=== PATIENT | male | born 1990 ===

== ENCOUNTER 2018-12-20 05:45 | Inpatient (IN) | payer OTHER ==
[~2018-12-20] VITALS: Ht 175.3 cm; Wt 83.9 kg
[2018-12-20] VITALS (9 sets, daily range): BP systolic 120–140; BP diastolic 50–86
[~2018-12-20 05:45] MED LIST: NKM
[2018-12-20] MEDS ORDERED: Bupivacaine 0.5% Inj 30 ml vial INJ ONE (07:03)
[2018-12-20] MEDS ORDERED: Heparin 5000 units/ml inj ONE (07:03)
[2018-12-20] MEDS ORDERED: Thrombin 5000 units TOPIC ONE ×2 (07:03→07:05)
[2018-12-20] MEDS ORDERED: Thrombin 5000 units spray kit TOPIC ONE (07:03)
[2018-12-20] MEDS ORDERED: Gelfoam Size TOPIC ONE (07:03)
[2018-12-20] MEDS ORDERED: Bacitracin 50000 Units Vial ONE (07:04)
[2018-12-20] MEDS ORDERED: Midazolam 2mg/2ml Inj ONE (07:06)
[2018-12-20] MEDS ORDERED: fentaNYL 100 mcg/2 mL IV ONE (07:06)
[2018-12-20] MEDS ORDERED: Gelfoam Absorbable 1gm powder pkt TOPIC ONE (07:06)
--- NOTE | 2018-12-20 07:11 | Pre-Procedure Note/Attestation ---
Pre-Procedure Note/Attestation Complete Prior to Procedure Planned Procedure: bilateral Indications for Procedure Pre-Operative Diagnosis: herniated disk L5/S1 chronic back and bilateral leg pain Attestation I attest that I discussed the nature of the procedure; its benefits; risks and complications; and alternatives (and the risks and benefits of such alternatives ), prior to the procedure, with the patient (or the patient's legal insurance representative). I attest that, if there was a reasonable possibility of needing a blood transfusion, the patient (or the patient's legal insurance representative) was given the [facility] standardized written summary, pursuant to the Gabriel Salomón Blood Safety Act ([place] Health and Safety Code # 1645, as amended). I attest that I re-evaluated the patient just prior to the surgery and that there has been no change in the patient's H&P, except as documented below: Antwan Palma MD Dec 20, 2018 07:10
[2018-12-20] MEDS ORDERED: Rocuronium Bromide 50mg/5ml Inj IV ONE (07:19)
[2018-12-20] MEDS ORDERED: Succinylcholine 20mg/ml 10ml vial ONE (07:19)
[2018-12-20] MEDS ORDERED: NS Irrig 1000ml IRRIG ONE ×2 (07:20→07:56)
[2018-12-20] MEDS ORDERED: TransDerm Scop 1.5mg/72HR Patch TDERMAL ONE (07:29)
[2018-12-20] MEDS ORDERED: Sterile Water Irrig 1000ml IRRIG ONE (08:00)
[2018-12-20] MEDS ORDERED: LR 1000ml ONE (08:00)
[2018-12-20] MEDS ORDERED: Propofol 1,000mg/ 100ml btl IV ONE (08:00)
[2018-12-20] MEDS ORDERED: TransDerm Scop 1.5mg/72HR Patch TDERMAL SCH (08:30)
[2018-12-20] MEDS ORDERED: Acetaminophen (Non formulary) 100 ML IV ONE (08:30)
--- NOTE | 2018-12-20 08:31 | Anethesia Preoperative Eval ---
Anesthesia Pre-op PMH/ROS General Date of Evaluation: Dec 20, 2018 Time of Evaluation: 07:10 Anesthesiologist: Cassandra ASA Score: ASA 2 Mallampati Score Class I : Soft palate, uvula, fauces, pillars visible Class II: Soft palate, uvula, fauces visible Class III: Soft palate, base of uvula visible Class IV: Only hard plate visible Mallampati Classification: Class II Surgeon: Louie Diagnosis: Lumbar radiculopathy Surgical Procedure: Anterior discectomy fusion L5-S! Anesthesia History: none Social History: current smoker Family History: no anesthesia problems Allergies: Coded Allergies: No Known Allergies (Unverified , 12/17/18) Medications: see eMAR Patient NPO?: Yes NPO Date: Dec 20, 2018 NPO Time: 2100 Past Medical History Cardiovascular: Denies: HTN, CAD, [place], valve dz, arrhythmia, other Pulmonary: Denies: asthma, COPD, CATALINA, other Gastrointestinal/Genitourinary: Reports: GERD - mild; Denies: CRI, ESRD, other Neurologic/Psychiatric: Reports: other - chronic pain; Denies: dementia, CVA, depression/anxiety, TIA Endocrine: Denies: DM, hypothyroidism, steroids, other HEENT: Denies: cataract (L), cataract (R), glaucoma, CAHTO (L), CAHTO (R), other Hematology/Immune: Denies: anemia, DVT, bleeding disorder, other Musculoskeletal/Integumentary: Denies: OA, RA, DJD, DDD, edema, other PMH Narrative: as above PSxH Narrative: Appendectomy Anesthesia Pre-op Phys. Exam Physician Exam Last Vital Signs Date Time Temp Pulse Resp B/P (MAP) Pulse Ox O2 Delivery O2 Flow Rate FiO2 12/20/18 06:44 Room Air 12/20/18 06:29 97.1 61 18 120/69 (86) 98 Constitutional: NAD Neurologic: CN 2-12 intact Cardiovascular: RRR, no M/R/G Respiratory: CTA Gastrointestinal: S/NT/ND Airway Exam Mallampati Score: Class II MO: full Neck: flexible ROM: full Teeth: intact Dentures: no upper, no lower Anesthesia Pre-op A/P Labs see chart Studies Pre-op Studies: EKG - NSR Risk Assessment & Plan Assessment: ASA 2 Plan: GA with ETT neuromonitoring PONV prevention Status Change Before Surgery: No Pre-Antibiotics Drug: Ancef 2gr. Given Within 1 Hr of Incision: Yes Time Given: 08:16 Rafi Trujillo MD Dec 20, 2018 08:31
[2018-12-20] MEDS ORDERED: Sodium Chloride 10ml vial INJ ONE (08:33)
[2018-12-20] MEDS ORDERED: Glycopyrrolate 0.2mg/ml 1ml Vial ONE (08:33)
[2018-12-20] MEDS ORDERED: Neostigmine 1mg/ml 10ml Inj ONE (08:33)
[2018-12-20] MEDS ORDERED: Morphine Sulfate 10mg/ml Inj ONE (08:33)
[2018-12-20] MEDS ORDERED: Vancomycin 1gm vial IVPB ONE (08:35)
[2018-12-20] MEDS ORDERED: LR 1000ml 1,000 ML IVLG SCH (08:55)
[2018-12-20] MEDS ORDERED: DiphenhydrAMINE 50mg/ml Inj IVP PRN (09:00)
[2018-12-20] MEDS ORDERED: Meperidine 50mg/ml Inj(FOR RIGORS ONLY) IV PRN (09:00)
[2018-12-20] MEDS ORDERED: Hydromorphone 0.5mg/0.5ml inj IVP PRN (09:00)
[2018-12-20] MEDS ORDERED: Ketorolac 30mg Inj IV PRN (09:00)
[2018-12-20] MEDS ORDERED: Metoclopramide 10mg/2ml Inj IVP PRN (09:00)
[2018-12-20] MEDS ORDERED: Ketorolac 30mg Inj ONE (09:01)
--- NOTE | 2018-12-20 09:32 | NUR ---
CASE MANAGEMENT:REVIEW 28 YR OLD MALE SI: SPINAL STENOSIS 97.1 61 18 120/69 98% ON RA IS: TO SURGERY: L5/S1 ANTERIOR LUMBAR DECOMPRESSION,FUSION & INSTRUMENTATION : CURRENTLY IN SURGERY
--- NOTE | 2018-12-20 09:50 | Immediate Post-Op Evaluation ---
Immediate Post-Op Evalulation Immediate Post-Op Evalulation Procedure: Anterior L5-S1 discectomy with interbody fusion Date of Evaluation: Dec 20, 2018 Time of Evaluation: 09:49 IV Fluids: 1500 Blood Products: none Estimated Blood Loss: 50 Urinary Output: 250 Blood Pressure Systolic: 137 Blood Pressure Diastolic: 64 Pulse Rate: 82 Respiratory Rate: 20 O2 Sat by Pulse Oximetry: 99 Temperature (Fahrenheit): 97.7 Pain Score (1-10): 1 Nausea: No Vomiting: No Complications none Patient Status: reacts, patent, extubated, none Hydration Status: adequate Rafi Trujillo MD Dec 20, 2018 09:50
--- NOTE | 2018-12-20 11:00 | NUR ---
NURSE NOTES: received report from Ely RN, pt a/a/ox4 laying in bed with no signs of distress or other issues at this time. surgical incision dry and intact. IV on the right arm gauge #20 running NS@100ml/hr. RN will review orders and will carry on as indicated. call light within reach, bed in lowest position. side rales up x2. I will f/u as needed. - NO orders were enter by Ely SAMANIEGO. we will contact MD for post op orders.
[2018-12-20] MEDS: Morphine Sulfate 2mg/ml Inj(IV/IM USE ONLY) IVP PRN ×2 (12:05→20:53)
[2018-12-20] MEDS ORDERED: ceFAZolin 1gm/50ml Premix 50 ML IV ONE (14:00)
--- NOTE | 2018-12-20 15:56 | Diagnostic Imaging Report ---
Indication: Intraoperative imaging COMPARISON: None FINDINGS: 3 fluoroscopic images were obtained intraoperatively. Intraoperative imaging showing localization followed by anterior discectomy and fusion at L5-S1. Fluoroscopic time 7 seconds. IMPRESSION: Intraoperative imaging as described above
[2018-12-20] MEDS: Vancomycin 1 GM in D5W 275 ML IVPB SCH (16:42)
[2018-12-20] MEDS ORDERED: Morphine Sulfate 2mg/ml Inj(IV/IM USE ONLY) IVP PRN ×2 (17:00)
[2018-12-20] MEDS: Morphine Sulfate 4mg/ml Inj (IV USE ONLY) IVP PRN (17:00)
--- NOTE | 2018-12-20 17:15 | Operative Note - Dictated ---
DATE OF OPERATION: 12/20/2018 PREOPERATIVE DIAGNOSES: 1. L5-S1 disk derangement with herniation. 2. L5-S1 facet hypertrophy and facet inflammation. POSTOPERATIVE DIAGNOSES: 1. L5-S1 disk derangement with herniation. 2. L5-S1 facet hypertrophy and facet inflammation. PROCEDURES: 1. Anterior decompression, this included a complete diskectomy with removal of the disk, decompression of spinal canal, and neurologic structures including the cauda equina and nerve roots. 2. L5-S1 anterior interbody fusion using distraction arthrodesis technique to further open up the foramen in and directly reduce, decompress the nerve roots. 3. Insertion of a peek cage at L5-S1. 4. Anterior plating at L5-S1. 5. Intraoperative use of fluoroscopy. 6. Use of local bone graft. 7. Use of bone morphogenic protein. 8. Intraoperative use of spinal cord monitoring. SURGEON: Antwan Palma M.D. CO-SURGEON: jacinto Hoffman . ANESTHESIA: General with endotracheal intubation. ANESTHESIOLOGIST: Rafi Trujillo M.D. ESTIMATED BLOOD LOSS: 5 mL. COMPLICATIONS: None. COUNTS: All sponge and needle counts were reported as correct at the end of the procedure. DESCRIPTION OF PROCEDURE: Under general anesthesia with endotracheal intubation, the patient was placed in supine position on the operating table. Abdomen was prepped and draped in the usual manner. Incision was made below the umbilicus and through this incision, we made a retroperitoneal approach to lumbosacral spine. We approached the L5-S1 disks great vessels. I incised the anulus with a knife, the endplates with an endplate separator and then removed the disk with a variety of pituitary rongeurs. This was removed back to posterior longitudinal ligament, which was taken down. A canal was decompressed. Wedge-shaped distractors were inserted to open up the interspace. The neurologic structures were decompressed. Local bone was harvested off the endplates and pushed out laterally. A 13 mm high 15-degree angled cage was then selected. It was packed with bone morphogenic protein, soaked in the collagen sponge. This was gently tapped into position under fluoroscopic control and direct vision. A plate was fixed in the anterior portion of the cage. Two screws were directed into the inferior endplates of L5 and two into the superior endplates of S1, all screws were appropriately locked. Hemostasis was achieved. The wound was then closed in layers. Sterile dressings were applied. The patient was taken to recovery room, judged to be in stable condition, neurologically unchanged. Antwan Palma MD DR: BIPIN JOB#: [id number] CC: JASPER
--- NOTE | 2018-12-20 18:15 | NUR ---
NURSE NOTES: RN called Dr. Palma that pt hasn't be able to void since 11:00 when I received patient. per MD to straight cath. RN will carry on. - patient is aware and stated that he will like a little bit longer before straight cath is performed.
[2018-12-20] MEDS: ceFAZolin 1gm in D5W 55ml IVP SCH (18:21)
--- NOTE | 2018-12-20 19:56 | NUR ---
HAND-OFF: Report given to Susannah RN, pt in stable condition. Endorsed to incoming nurse to check for post void. - s/p straight cath @19:45. urine out put: 1350ml. - bladder scan performed after straight cath, CERO residual noted.
--- NOTE | 2018-12-20 21:17 | NUR ---
NURSES NOTE: Received patient lying in bed, A/O X4, able to communicate needs. No outward s/s of distress. Breathing pattern is even and unlabored. VS within normal limits. Straight cath performed by previous nurse Shar at 1945 - apprx 1350 cc evacuated. Patient reports comfort and great relief at this time. Iv is intact running NS at 100ml/hr. No signs of inflammation at the IV site. Surgical site lower left abdomen is clean and intact. Morphine 2mg given for pain 10/02 at 2230. Will continue to monitor urine output. Bed at lowest level, call light within reach.
[2018-12-21] MEDS: ceFAZolin 1gm in D5W 55ml IVP SCH ×2 (02:33→10:54)
[2018-12-21] MEDS: Morphine Sulfate 2mg/ml Inj(IV/IM USE ONLY) IVP PRN ×3 (03:08→17:43)
[2018-12-21] MEDS: Vancomycin 1 GM in D5W 275 ML IVPB SCH (04:08)
--- NOTE | 2018-12-21 04:53 | NUR ---
NURSES NOTE: Received order for straight cath Q6H PRN. Processed.
--- NOTE | 2018-12-21 04:58 | NUR ---
NURSES NOTE: Patient refuses straight cath asking if it could be done later due to him wanting to sleep. RN agreed and will attempt at AM rounds.
[2018-12-21] MEDS: Morphine Sulfate 4mg/ml Inj (IV USE ONLY) IVP PRN ×2 (06:14→13:49)
--- NOTE | 2018-12-21 06:27 | NUR ---
NURSES NOTE: Straight cath done at 0530. 650 cc evacuated. Pt reports he feels comfortable. Bladder is non-distended and soft after catheterization.
--- NOTE | 2018-12-21 07:55 | NUR ---
HAND OFF: Report given to DANETTE Underwood. Patient left in stable condition. New straight cath order reviewed with RN. Patient has not voided on his own for entire NOC shift.
[2018-12-21 08:00] VITALS: BP 129/76
--- NOTE | 2018-12-21 08:15 | NUR ---
NURSE NOTES: Received report from Lis SAMANIEGO. Patient is awake and oriented, reporting no pain at this time, no acute distress noted. IVF running per order. Anterior surgical dressing clean, dry, intact. Per report, patient was straight catheterized at 0530 this morning with 650mL of urine out. Patient states he is comfortable at this time and is not reporting any bladder discomfort. Patient has still not voided on his own. Will follow up and straight cath PRN per order if patient still unable to void. Patient has discharge order today, will follow up with Dr. Palma regarding holding discharge due to patient not voiding yet. Patient states he is passing gas well, no order for what to advance diet to, will also follow up with Dr. Palma regarding diet order. All safety measures in place. Patient updated on plan of care. Side rails upx3, bed low and locked, call light in reach.
--- NOTE | 2018-12-21 09:00 | NUR ---
PT EVALUATION NOTE Patient seen for initial evaluation, see complete evaluation for details. Patient is s/p lumbar surgery, presents with impaired functional mobility due to pain. Patient educated in back precautions and log roll technique for in/OOB. Patient required CGA for bed mobility and SBA for transfers. Patient able to ambulate 200 ft without assistive device with SBA. Patient will benefit from skilled inpatient PT intervention to improve bed mobility skills, transfers and ambulation while maintaining proper back precautions. Anticipate discharge home once medically cleared by MD. No DME needs identified at this time. Addendum: 12/21/18 at 1217 by ARSENIO WYNN PT Amended: Links added.
--- NOTE | 2018-12-21 09:06 | Orthopedic Spine Progress Note ---
Ortho Spine - Progress Note Subjective Symptoms: c/o post-op back pain, improved - as compared to pre-op Objective Vital Signs: Last 24 Hour Vital Signs Date Time Temp Pulse Resp B/P (MAP) Pulse Ox O2 Delivery O2 Flow Rate FiO2 12/21/18 08:00 98.6 75 16 129/76 (93) 97 12/20/18 21:00 Room Air 12/20/18 17:30 97.6 12/20/18 12:35 97.6 12/20/18 11:15 97.8 17 17 131/85 100 Room Air 12/20/18 11:00 17 15 129/83 100 Room Air 12/20/18 10:46 97.6 12/20/18 10:46 97.6 12/20/18 10:45 17 16 127/86 100 Room Air 12/20/18 10:30 17 18 130/86 100 Room Air 12/20/18 10:15 18 14 129/84 100 Room Air 12/20/18 10:00 17 16 138/86 100 Simple Mask 6 12/20/18 09:50 14 17 140/81 100 Simple Mask 6 12/20/18 09:50 82 20 99 12/20/18 09:46 97.6 20 20 127/50 100 Simple Mask 6 I&O: Intake and Output 12/20/18 12/21/18 18:59 06:59 Intake Total 200 ml 955 ml Balance 200 ml 955 ml Intake IV Total 200 ml 955 ml Drains: none Plan Plan: PT, continue antibiotics, discharge to home Antwan Palma MD Dec 21, 2018 09:06
--- NOTE | 2018-12-21 09:08 | Brief Operative Note ---
Immediate Post Operative Note Operative Note Chief Complaint: back pain Pre-op Diagnosis: herniated disk L5/S1 chronic back and bilateral leg pain Post-op Diagnosis: same as pre-op Anesthesia: general Specimen: yes Complications: none Condition: stable Fluids: 2 liters Estimated Blood Loss: minimal Drains: none Implant(s) used?: Yes Antwan Palma MD Dec 21, 2018 09:08
--- NOTE | 2018-12-21 09:17 | General Progress Note ---
Assessment/Plan Assessment/Plan: L5-S1 disk derangement with herniation. L5-S1 facet hypertrophy and facet inflammation. Anterior decompression, this included a complete diskectomy with removal of the disk, decompression of spinal canal, and neurologic structures including the cauda equina and nerve roots. L5-S1 anterior interbody fusion using distraction arthrodesis technique to further open up the foramen in and directly reduce, decompress the nerve roots. PLAN 1. incentive spirometry 2. monitor UO 3. PT evaluation and therapy 4. Hydration; advance diet and monitor for flatus 5. Pain management 6. discharge if tolerating po and able to urinate Subjective Allergies: Coded Allergies: No Known Allergies (Unverified , 12/17/18) Subjective care noted Objective Last 24 Hour Vital Signs Date Time Temp Pulse Resp B/P (MAP) Pulse Ox O2 Delivery O2 Flow Rate FiO2 12/21/18 08:00 98.6 75 16 129/76 (93) 97 12/20/18 21:00 Room Air 12/20/18 17:30 97.6 12/20/18 12:35 97.6 12/20/18 11:15 97.8 17 17 131/85 100 Room Air 12/20/18 11:00 17 15 129/83 100 Room Air 12/20/18 10:46 97.6 12/20/18 10:46 97.6 12/20/18 10:45 17 16 127/86 100 Room Air 12/20/18 10:30 17 18 130/86 100 Room Air 12/20/18 10:15 18 14 129/84 100 Room Air 12/20/18 10:00 17 16 138/86 100 Simple Mask 6 12/20/18 09:50 14 17 140/81 100 Simple Mask 6 12/20/18 09:50 82 20 99 12/20/18 09:46 97.6 20 20 127/50 100 Simple Mask 6 Intake and Output 12/20/18 12/21/18 18:59 06:59 Intake Total 200 ml 955 ml Balance 200 ml 955 ml Intake IV Total 200 ml 955 ml Height (Feet): 5 Height (Inches): 9.00 Weight (Pounds): 185 Objective WDWN NAD clear breath sounds bilaterally without rhonchi or wheeze [id number] without MRG NABS nontender no HSM no CCE nonfocal Denis Mosley MD Dec 21, 2018 09:17
--- NOTE | 2018-12-21 10:04 | 48 Hour Post Anesthesia Eval ---
Post Anesthesia Evaluation Procedure: Anterior L5-S1 discectomy with interbody fusion Date of Evaluation: Dec 21, 2018 Time of Evaluation: 07:03 Blood Pressure Systolic: 129 0: 76 Pulse Rate: 75 Respiratory Rate: 16 Temperature (Fahrenheit): 98.6 O2 Sat by Pulse Oximetry: 97 Airway: patent Nausea: No Vomiting: No Pain Intensity: 2 Hydration Status: adequate Cardiopulmonary Status: Stable Mental Status/LOC: patient returned to baseline Follow-up Care/Observations: 0 Post-Anesthesia Complications: 0 Follow-up care needed: ready to discharge Pierre Pickard MD Dec 21, 2018 10:04
--- NOTE | 2018-12-21 11:31 | NUR ---
NURSE ASHLEY: Patient voided on his own without difficulty. Patient also passing flatus, advanced diet per order. Patient reports he will be ready for discharge today around 1800.
[2018-12-21 12:00] VITALS: BP 132/89
[2018-12-21 16:00] VITALS: BP 137/97
[2018-12-21] MEDS ORDERED: NORCO 5-325 TA1 EACH ORAL (17:27)
--- NOTE | 2018-12-21 18:57 | NUR ---
NURSE NOTES: Patient discharged without distress at 1840 accompanied by his sister. Patient provided with discharge education/handouts, patient educated not to drive until cleared by Dr. Palma, patient educated to call Dr. Palma's office tomorrow to arrange for follow up appointment. Patient verbalized understanding of all provided education. IV removed intact. Patient given and signed for prescription from Dr. Mosley. Patient escorted off unit via wheelchair by EMAIL DESIGNER.
--- NOTE | 2018-12-21 20:13 | NUR ---
NURSE NOTES: Received a call from patient that patient feels nauseous and asking anyway to get medication for nausea. Patient gave own pharmacy information. [facility] at [address] [place], [place] [id number] Contact number [phone]. Spoke to Dr. Mosley regarding patient and will call patient's pharmacy and order nausea medication. Notified patient that doctor will call pharmacy to order medication.
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
--- NOTE | 2018-12-22 22:16 | Operative Note - Dictated ---
DATE OF OPERATION: 12/20/2018 PREOPERATIVE DIAGNOSES: 1. L5-S1 disc derangement with herniation. 2. L5-S1 facet hypertrophy and facet inflammation. POSTOPERATIVE DIAGNOSES: 1. L5-S1 disc derangement with herniation. 2. L5-S1 facet hypertrophy and facet inflammation. PROCEDURES: 1. Anterior decompression, which includes complete diskectomy and removal of the disc, decompression of the spinal canal, neurological structures including the cardiac equina nerve roots. 2. L5-S1 anterior interbody fusion using distraction arthrodesis technique to further open the foramen and directly reduce the nerve root. 3. Anterior retroperitoneal exposure of lumbosacral spine. 4. Insertion of the PEEK cage L5-S1. 5. Anterior plating at L5-S1. 6. Intraoperative use of fluoroscopy. 7. Use of local bone graft. 8. Ligation of the middle sacral artery and vein. 9. Mobilization of the right and left common iliac artery and vein. SURGEON: Ivan Lambert M.D. CO-SURGEON: Antwan Palma M.D. OPERATIVE NOTE: Risks, benefits, complications, alternative therapies explained to the patient. Consent obtained. Risks and benefits were explained to the patient included, but not limited to bleeding, infection, damage to bowel, damage to ureter, wound infection, wound dehiscence, DVT, PE, loss of limb, loss of life, high-risk nature of the operation fully explained to the patient and family including, possibility of retrograde ejaculation, sexual dysfunction. ESTIMATED BLOOD LOSS: 5 mL. ANESTHESIOLOGIST: Rafi Truijllo M.D. ANESTHESIA: General. COMPLICATIONS: None. COUNTS: All sponge counts, needle counts were correct at the end of procedure. OPERATIVE TECHNIQUE: The patient was placed in supine position, prepped and draped in usual sterile fashion. Time-out was called. Antibiotics were given. I made an 8 cm incision in the left lower quadrant horizontal fashion. Incision was taken down to the subcutaneous tissue, which was then opened using electrocautery. The left anterior rectus sheath was opened in the direction of the wound. Posterior rectus sheath was incised superiorly about 2 cm. A Bookwalter retractor was placed retracting the bowel contents to the right, left rectus muscle to the left. I dissected the left common iliac artery and vein, external iliac artery and vein, and middle sacral vessels were ligated using titanium clips. The right common iliac artery and vein were mobilized to the right. Left common iliac artery and vein were mobilized to the left. We proceeded with a diskectomy and placement of a new cage. Please refer to Dr. Palma's dictation for the details of that operation. After all the x-rays were satisfactory read by Dr. Palma, needle consult and sponge count was correct. The wound was irrigated using antibiotic solution. Anterior rectus sheath was closed using #1 Vicryl suture in a running fashion. The wound was irrigated again and closed in 2 layers of 2-0 Vicryl suture for subcutaneous and Steri-Strips for the skin. The patient tolerated the procedure well. Ivan Lambert MD DR: MIR JOB#: [id number] CC:
--- NOTE | 2018-12-23 10:37 | Discharge Summary ---
Discharge Summary Hospital Course Date of Admission Dec 20, 2018 at 05:45 Date of Discharge Dec 21, 2018 at 18:40 Admitting Diagnosis herniated disk L5-S1 , chronic back and bilateral leg pain Reason for Hospitalization: elective surgery HPI Dez England is a 28 year old male who was admitted on Dec 20, 2018 at 05 :45 for Spinal Stenosis,Lumbosacral Region,Radiculopathy. Patient was admitted for elective surgery. Consultations Dr Lambert -thoracic surgeon Dr Mosley -IM Procedures s/p 12/20/[address] Palma -spine surgeon and Dr Lambert -thoracic surgeon 1. Anterior decompression, this included a complete diskectomy with removal of the disk, decompression of spinal canal, and neurologic structures including the cauda equina and nerve roots. 2. L5-S1 anterior interbody fusion using distraction arthrodesis technique to further open up the foramen in and directly reduce, decompress the nerve roots. 3. Insertion of a peek cage at L5-S1. 4. Anterior plating at L5-S1. 5. Intraoperative use of fluoroscopy. 6. Use of local bone graft. 7. Use of bone morphogenic protein. 8. Intraoperative use of spinal cord monitoring. Hospital Course status post surgery -tolerated procedure well course of recovery uneventful ; initially IV fluids s/p perioperative antibiotics neurovascular status closely monitored, remained stable incision clean, dry, and intact with dressing pain management addressed ; pain controlled remained hemodynamically stable ambulated with PT fall precautions maintained; safe for ambulation DVT with SCD prophylaxis provided use of incentive spirometry was encouraged while in the bed diet was advanced as tolerated; patient was able to tolerate diet IV fluids discontinued voided freely bowel regimen instituted patient was stable for discharge discharge instructions provided follow up with surgeon in the office as advised by surgeon FINAL DIAGNOSES 1. L5-S1 disk derangement with herniation. 2. L5-S1 facet hypertrophy and facet inflammation 3. s/p Anterior L5-S1 discectomy with interbody fusion Discharge Medications Continued Medications: Hydrocodone Bit/Acetaminophen 5-325* (Juliaetta 5-325*) 1 Each Tablet 1 TAB ORAL Q4H PRN for For Pain, #25 TAB 0 Refills (This prescription has been renewed) Discharge Condition Upon Discharge: stable Discharge Disposition Patient was discharged home Discharge Instructions Discharge Instructions Special Instructions I have been assigned to complete a D/C Summary on this account. I was not involved in the patient management Lita Wren NP Dec 23, 2018 10:37
== END 2018-12-21 18:40 | disposition home or self-care (01) | DRG 460 ==
LOC: SDSOVERFLO 05:45 → 3E 11:18
DX: M51.17 Intervertebral disc disorders with radiculopathy, lumbosacral region (principal); M48.07 Spinal stenosis, lumbosacral region; F17.200 Nicotine dependence, unspecified, uncomplicated; V03.90XS Pedestrian on foot injured in collision with car, pick-up truck or van, unspecified whether traffic or nontraffic accident, sequela
CPT/HCPCS: 36415; 72020; 76000; 86850; 86900; 86901; 87081; 94003; 94150; J2250; J2405; J2710; J7030